=== PATIENT | male | born 1945 | race Caucasian/White ===

== ENCOUNTER 2017-07-30 15:18 | Emergency (ER) | payer MEDICARE, OTHER ==
[~2017-07-30] VITALS: Ht 188 cm; Wt 104.3 kg
[2017-07-30] MEDS ORDERED: BLOOD PRESSURE MED (15:30)
[2017-07-30] MEDS ORDERED: GLUCOPHAGE XR500 MG PO (15:30)
[2017-07-30] MEDS ORDERED: ASPIR 8181 MG PO (15:30)
[2017-07-30 15:57] LABS: ABSOLUTE BASOPHILS 0.1 thou/uL (0.0-0.2); ABSOLUTE EOSINOPHILS 0.5 thou/uL (0.0-0.7); ABSOLUTE LYMPHOCYTES 3.9 thou/uL (0.8-5.3); ABSOLUTE MONOCYTES 1.2 thou/uL (0.0-1.2); ABSOLUTE NEUTROPHILS 7.8 thou/uL (1.6-8.1); BASOPHILS 0.8 %; EOSINOPHILS 3.6 %; HEMATOCRIT 43.7 % (42.0-52.0); HEMOGLOBIN 14.5 gm/dL (14.0-18.0); LYMPHOCYTES 28.7 %; MCH 28.2 pg (26.0-34.0); MCHC 33.2 g/dL (28.0-37.0); MCV 84.8 fL (80.0-100.0); MPV 8.9 fl. (7.2-11.1); NUCLEATED RBCS 0 /100WBC; PLATELET COUNT* 287 thou/uL (150-400); POLYS 57.9 %; RBC 5.15 mil/uL (4.50-6.00); RDW-CV 14.5 % (10.5-14.5); WBC 13.5 thou/uL (4.0-11.0)
[2017-07-30 16:02] LABS: ANION GAP 14 mmol/L (7-16); BUN 28 mg/dL (7-18); CALCIUM 9.4 mg/dL (8.5-10.1); CHLORIDE 103 mmol/L (98-107); CO2 24 mmol/L (21-32); CREATININE 1.5 mg/dL (0.6-1.3); GLUCOSE 197 mg/dL (70-99); POTASSIUM 3.9 mmol/L (3.5-5.1); SODIUM 141 mmol/L (136-145)
[2017-07-30 16:08] LABS: ALBUMIN 4.3 g/dL (3.4-5.0); ALKALINE PHOSPHATASE 67 U/L (46-116); LIPASE 92 U/L (73-393); SGOT 34 U/L (15-37); SGPT 87 U/L (30-65); TOTAL BILIRUBIN 0.3 mg/dL (<0.1-1.0); TOTAL PROTEIN 7.6 g/dL (6.4-8.2); TROPONIN-I LEVEL <0.06 ng/mL (<0.06)
[2017-07-30 16:22] LABS: URINE BILIRUBIN NEGATIVE (Negative); URINE BLOOD 2+ (Negative); URINE CLARITY CLEAR; URINE COLOR YELLOW; URINE GLUCOSE-RANDOM NEGATIVE (Negative); URINE KETONES 1+ (Negative); URINE LEUKOCYTES-REFLEX NEGATIVE (Negative); URINE NITRITE-REFLEX NEGATIVE (Negative); URINE PROTEIN NEGATIVE (Negative); URINE SPECIFIC GRAVITY >= 1.030 (1.005-1.030); URINE UROBILINOGEN 0.2 E.U./dl (0.2-1.0)
[2017-07-30 16:29] LABS: SQUAMOUS NONE SEEN /LPF (0-3)
[2017-07-30 16:30] LABS: BACTERIA-REFLEX None Seen /HPF (None Seen); CASTS None Seen /LPF (None Seen); CRYSTALS None Seen /LPF (None Seen); URINE RBC 0-2 Rare /HPF (0-2); URINE WBC-REFLEX None Seen /HPF (0-5)
[2017-07-30] MEDS ORDERED: ONDANSETRON HCL4 M2 PO (17:08)
[2017-07-30] MEDS ORDERED: HYDROCODONE-AP1 EAC6 PO (17:08)
[2017-07-30] MEDS ORDERED: FLOMAX0.4 MG PO (17:09)
[2017-07-30 17:44] VITALS: BP 169/74
--- NOTE | 2017-07-31 16:24 | EKG ---
[place] [address] ELECTROCARDIOGRAM REPORT Name: LAINA SUN [id number] Admission: 07/30/17 Attend Phys: Discharge: 07/30/17 Date of : 45 Report #: [id number] THIS REPORT FOR: //name// [facility] ED Test Date: 2017-07-30 Test Time: 15:54:29 Pat Name: LAINA SUN Department: Room: Gender: M [employer]itro Man: student : 1945 Requested By: Alyse Pereira Order Number: [id number] MD: Fausto Tyler Measurements Intervals [place] Rate: 83 P: 37 LA: 150 QRS: 14 QRSD: 93 T: 52 QT: 405 QTc: 476 Interpretive Statements Sinus rhythm Abnormal R-wave progression, early transition Borderline T wave abnormalities Borderline prolonged QT interval No previous ECG available for comparison Electronically Signed On 07-31-2017 16:24:14 [employer] by Fausto Tyler [email or web address] <ELECTRONICALLY SIGNED> By: Fausto Tyler MD, [facility] 07/31/17 1624 155 [id number] Fausto Tyler MD, FACC /EPI
== END 2017-07-30 17:46 | disposition home or self-care (01) ==
LOC: M.ERS 15:18
PROVIDERS: Physician Assistant
DX: N20.0 Calculus of kidney (principal); I10 Essential (primary) hypertension; E11.9 Type 2 diabetes mellitus without complications; Z98.890 Other specified postprocedural states